=== PATIENT | female | born 1960 | race Caucasian/White ===

== ENCOUNTER 2016-09-01 17:58 | Emergency (ER) | payer OTHER ==
[2016-09-01] MEDS ORDERED: NORCO 5-325 TA1 EACH PO (20:51)
== END 2016-09-01 21:05 ==
LOC: EDMED 17:58
PROC: 2W3DX1Z Immobilization of Left Lower Arm using Splint (ICD-10-PCS; principal; 2016-09-01)
PROC: 2W3CX1Z Immobilization of Right Lower Arm using Splint (ICD-10-PCS; 2016-09-01)
DX: S52.572A Other intraarticular fracture of lower end of left radius, initial encounter for closed fracture (principal); S52.571A Other intraarticular fracture of lower end of right radius, initial encounter for closed fracture; Z91.040 Latex allergy status; W50.0XXA Accidental hit or strike by another person, initial encounter; Y93.6A Activity, physical games generally associated with school recess, summer camp and children; Y92.310 Basketball court as the place of occurrence of the external cause; Y99.8 Other external cause status
CPT/HCPCS: J1170